=== PATIENT | female | born 2000 | race Hispanic/Latino ===

== ENCOUNTER 2022-04-05 17:19 | Emergency (ER) | payer OTHER ==
[2022-04-05] MEDS ORDERED: ONDANSETRON 4 MG/2 ML VIAL ONE (17:54)
[2022-04-05] MEDS ORDERED: MORPHINE 4 MG/ML SYR ONE ×2 (17:54→21:37)
[2022-04-05 18:12] LABS: Urine Blood 3+ (Negative); Urine Glucose Negative (Negative); Urine Protein 2+ (Negative); Urine Specific Gravity >=1.030 (1.005-1.030)
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
[2022-04-05] MEDS ORDERED: MORPHINE 2 MG/ML SYR ONE (18:43)
--- NOTE | 2022-04-05 19:36 | RAD REPORT ---
EXAM DESCRIPTION: RAD - Knee Left 3 View - 04/05/2022 7:25 pm CLINICAL HISTORY: PAIN COMPARISON: No comparisons FINDINGS/IMPRESSION: No acute fracture. No malalignment. No significant focal degenerative changes.
--- NOTE | 2022-04-05 19:36 | RAD REPORT ---
EXAM DESCRIPTION: RAD - Ankle Left 3 View - 04/05/2022 7:25 pm CLINICAL HISTORY: Pain COMPARISON: No comparisons FINDINGS/IMPRESSION: No acute fracture. No malalignment. No significant focal degenerative changes.
--- NOTE | 2022-04-05 19:44 | RAD REPORT ---
EXAM DESCRIPTION: RAD - Humerus Right - 04/05/2022 7:24 pm CLINICAL HISTORY: PAIN COMPARISON: No comparisons FINDINGS/IMPRESSION: Transversely oriented mildly comminuted fracture of the right mid humeral diaph ysis with approximately 1/2 shaft width of maximal displacement and up to 7 millimeters of foreshorte lina. Slight angulation.
[2022-04-05] MEDS ORDERED: HYDROCODONE/APAP 10/325 TAB ONE (21:37)
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
[2022-04-06 01:20] VITALS: TEMP 99.4
[2022-04-06 01:22] VITALS: BP 118/76; O2SAT 99
== END 2022-04-05 22:42 | disposition home or self-care (01) ==
LOC: ER 17:19
PROC: 2W38X1Z Immobilization of Right Upper Extremity using Splint (ICD-10-PCS; principal; 2022-04-05)
DX: S22.21XA Fracture of manubrium, initial encounter for closed fracture (principal); S42.351A Displaced comminuted fracture of shaft of humerus, right arm, initial encounter for closed fracture; N39.0 Urinary tract infection, site not specified; M25.562 Pain in left knee; M25.572 Pain in left ankle and joints of left foot; V49.50XA Passenger injured in collision with unspecified motor vehicles in traffic accident, initial encounter
CPT/HCPCS: 81003; 70450; 72125; 71260; 74177; 73060; 73562; 73610; 29105; Q9967; J2270; J2405; 96374; 96375; 99284